=== PATIENT | female | born 1965 ===

== ENCOUNTER → 2017-10-31 | Outpatient (CLI) | payer OTHER ==
--- NOTE | 2017-10-31 17:13 | CONS ---
CONSULTATION DATE OF SERVICE: 10/31/2017 52-year-old lady has [facility] for significant excessive daytime sleepiness with snoring and awakenings with choking. HISTORY OF PRESENT ILLNESS/SLEEP WAKE EVALUATION: Patient's usual sleep schedule on working days from around 11 to 11:30 p.m. to 5 a.m., on weekends until 7 or 8 a.m. Sometimes she has problems with falling asleep. She has a TV in bedroom. She sleeps in different positions including back, side and stomach with snoring and as I mentioned above with episodes of choking. She wakes up from sleep 2 times with nocturia. No history of hypnagogic hallucinations, sleep paralysis or cataplexy. In the morning she wakes up tired, feels significantly sleepy during the day. [place] Sleepiness Scale increased to 18. She had difficulties to pay attention, problems with memory and concentration. PAST MEDICAL AND SURGICAL HISTORY: Positive for , uterine ablation for the bleeding, bilateral LASIK procedure for improving vision. MEDICATIONS: None. SOCIAL HISTORY: Negative for smoking. Alcohol consumption occasional. FAMILY HISTORY: Hypertension, hyperlipidemia, diabetes. REVIEW OF SYSTEMS: Awakenings from sleep, significant excessive daytime sleepiness. PHYSICAL EXAM: GENERAL lady without distress. VITAL SIGNS BP 139/70, HR 69, RR 16, height 5 feet 4 inches, weight 192.2, BMI 32.9, oxygen saturation room air 98%, temperature 98.6. HEENT PERRLA, EOMI, evaluation of oropharynx showed extremely low position of soft palate. Restriction of nasal breathing. Neck is 17 inches in circumference. NECK Supple, no JVD. Thyroid is not palpable. LUNGS Clear to percussion and to auscultation. Good air exchange. No wheezing or rhonchi. HEART S1, S2 regular. No murmurs, gallops, or rubs. ABDOMEN Soft and nontender. Bowel sounds are present. No organomegaly appreciated. EXTREMITIES No clubbing or cyanosis. [employer] COUNSELOR Awake, alert, and oriented X3. Cranial nerves 2 to 7 intact. There is no fasciculation or atrophy. noted. No focal deficits observed. IMPRESSION: 1. Snoring, awakenings from sleep with choking, extremely low position of soft palate. Obstructive sleep apnea-hypopnea syndrome. 2. Significant excessive daytime sleepiness. [place] Sleepiness Scale increased to 18. Differential diagnosis should include hypersomnia, although no history of hypnagogic hallucinations, sleep paralysis or cataplexy. 3. Mild obesity, BMI 32.9. 4. Status post . 5. Status post uterine ablation for bleeding. 6. Status post bilateral LASIK procedure for the correction of vision. PLAN: 1. Polysomnography for evaluation of patient's breathing during sleep. 2. CPAP/BiPAP titration if sleep study confirms obstructive sleep apnea-hypopnea syndrome. 3. Preferable position during sleep on the side. 4. No driving if patient feels any sleepiness. Patient is aware of civil and criminal liability for unsafe driving. 5. I will see patient for follow up visit to explain results of testing and following plan. Thank you very much for referring this patient for consultation. Sincerely, Juancarlos Trejo MD, PhD, FAASM Diplomat of [place] [employer] [place] [employer] Documentation Manager of [facility] [place] MMODL / TASIAN: [id number] /
== END | disposition home or self-care (01) ==
LOC: SLEEP 15:47
PROVIDERS: ATTEND Internal Medicine
DX: Z53.9 Procedure and treatment not carried out, unspecified reason (principal)